=== PATIENT | female | born 1945 | race Caucasian/White ===

== ENCOUNTER → 2020-09-28 | Outpatient (CLI) | payer OTHER ==
[~2020-09-28] MED LIST: ASPIRIN 325MG325 MG PO; ASPIRIN EC325 MG PO; ASPIRIN325 MG PO; BUSPAR 10MG10 MG PO; CALCIUM 600 +1 EAC7 PO; CLEOCIN 150MG150 MG PO; ENOXAPARIN40 MG/0.4 SC; FLOVENT DISKU100 MCG INH; FOSAMAX70 MG PO; HYDROCHLOROTHIA50 MG PO; IBUPROFEN600 MG PO; KEFLEX500 MG PO; LEVOFLOXACIN250 MG PO; LEXAPRO10 MG PO; LORTAB 7.5-3251 EACH PO; MOBIC15 MG PO; NORCO 7.5-3251 EACH PO; OMEPRAZOLE40 MG PO; PERCOCET 5/325 T1 EA PO; ROXICODONE TAB 55 MG PO; SINGULAIR10 MG PO; TENORMIN25 MG PO; VENTOLIN HFA 66.7 GM INH; VITAMIN B-121000 MCG PO; ZESTRIL10 MG PO
== END ==
LOC: KOH-I 09:22
DX: S91.301D Unspecified open wound, right foot, subsequent encounter (principal); M86.8X7 Other osteomyelitis, ankle and foot; L98.9 Disorder of the skin and subcutaneous tissue, unspecified; X58.XXXA Exposure to other specified factors, initial encounter
CPT/HCPCS: 73718; 93926

== ENCOUNTER → 2020-10-05 | Outpatient (CLI) | payer OTHER | LOC: OPSV 12:00 | PROVIDERS: Podiatrist Foot & Ankle Surgery | PROC: 02HV33Z Insertion of Infusion Device into Superior Vena Cava, Percutaneous Approach (ICD-10-PCS; principal; 2020-10-05) | DX: M86.9 Osteomyelitis, unspecified (principal) | CPT/HCPCS: 80048 ==

== ENCOUNTER → 2020-10-06 | Outpatient (CLI) | payer OTHER ==
[~2020-10-06] VITALS: Ht 167.6 cm; Wt 81.6 kg
== END ==
LOC: OPSV 09:00
DX: M86.8X7 Other osteomyelitis, ankle and foot (principal)
CPT/HCPCS: 96365; 96366; J3370; J7070

== ENCOUNTER → 2020-11-24 | Outpatient (CLI) | payer OTHER ==
[2020-11-24 12:50] LABS: HEMOGLOBIN 10.2 gm/dl (12.3-15.3); RED BLOOD COUNT 3.22 M/UL (4.00-5.10); WHITE BLOOD COUNT 5.9 K/UL (4.5-11.0)
== END ==
LOC: OPSV2 12:00
PROVIDERS: Podiatrist Foot & Ankle Surgery
DX: Z01.812 Encounter for preprocedural laboratory examination (principal); M86.8X7 Other osteomyelitis, ankle and foot; Z20.822 Contact with and (suspected) exposure to COVID-19
CPT/HCPCS: 36415; 80048; 85027

== ENCOUNTER → 2020-11-25 | Day surgery (SDC) | payer OTHER ==
[~2020-11-25] VITALS: Ht 167.6 cm; Wt 84.4 kg
== END | disposition home or self-care (01) ==
LOC: OR 05:59
DX: T84.84XA Pain due to internal orthopedic prosthetic devices, implants and grafts, initial encounter (principal); M86.8X7 Other osteomyelitis, ankle and foot; L03.115 Cellulitis of right lower limb; I10 Essential (primary) hypertension; R53.83 Other fatigue; F41.9 Anxiety disorder, unspecified; D64.9 Anemia, unspecified; Z79.82 Long term (current) use of aspirin
CPT/HCPCS: 73630; 76000; C1713; J1580; J2001; J2405; J2704; J2795; J3010; J3370; J7120

== ENCOUNTER → 2021-03-11 | Outpatient (CLI) | payer OTHER | LOC: KOH-I 10:22 | DX: M79.672 Pain in left foot (principal); M19.072 Primary osteoarthritis, left ankle and foot; M20.42 Other hammer toe(s) (acquired), left foot | CPT/HCPCS: 73630 ==

== ENCOUNTER 2021-07-10 11:27 | Inpatient (IN) | payer OTHER ==
[~2021-07-10] VITALS: Ht 167.6 cm; Wt 86.2 kg
[2021-07-10 13:24] LABS: HEMOGLOBIN 11.3 gm/dl (12.3-15.3); RED BLOOD COUNT 3.51 M/UL (4.00-5.10)
[2021-07-10] MEDS ORDERED: MONTELUKAST SOD10 MG PO (22:08)
[2021-07-11 07:57] LABS: HEMOGLOBIN 11.4 gm/dl (12.3-15.3); RED BLOOD COUNT 3.66 M/UL (4.00-5.10); WHITE BLOOD COUNT 4.7 K/UL (4.5-11.0)
[2021-07-12 05:19] LABS: HEMOGLOBIN 12.1 gm/dl (12.3-15.3); RED BLOOD COUNT 3.71 M/UL (4.00-5.10)
[2021-07-12 05:21] LABS: WHITE BLOOD COUNT 6.1 K/UL (4.5-11.0)
--- NOTE | 2021-07-12 14:23 | NUR ---
PATIENT REQUESTING PAIN MEDICATION. NEW ORDER NOTED FROM DR. PANDYA.
[2021-07-14 04:40] LABS: RED BLOOD COUNT 3.66 M/UL (4.00-5.10); WHITE BLOOD COUNT 5.4 K/UL (4.5-11.0)
[2021-07-14] MEDS ORDERED: BACTRIM DS TAB1 EACH PO (09:23)
[2021-07-14] MEDS ORDERED: ASPIRIN EC81 MG PO (09:23)
== END 2021-07-14 12:52 | disposition home or self-care (01) | DRG 603 ==
LOC: ER1 11:27 → M/S 14:42 → CDU 14:42 → M/S 16:38
PROVIDERS: Internal Medicine; Physician Assistant; Physician Assistant Medical; ADMIT Internal Medicine
DX: L03.032 Cellulitis of left toe (principal); I73.9 Peripheral vascular disease, unspecified; I10 Essential (primary) hypertension; Z20.822 Contact with and (suspected) exposure to COVID-19; I48.91 Unspecified atrial fibrillation; K21.9 Gastro-esophageal reflux disease without esophagitis; F32.A Depression, unspecified; F41.9 Anxiety disorder, unspecified; M81.0 Age-related osteoporosis without current pathological fracture; Z79.01 Long term (current) use of anticoagulants; Z86.16 Personal history of COVID-19; Z79.2 Long term (current) use of antibiotics; Z79.82 Long term (current) use of aspirin; Z98.42 Cataract extraction status, left eye; Z98.41 Cataract extraction status, right eye; Z89.421 Acquired absence of other right toe(s); Z87.81 Personal history of (healed) traumatic fracture
CPT/HCPCS: 36415; 73630; 73718; 80048; 80053; 80202; 83605; 83735; 85025; 85027; 85652; 86140; 87040; 93926; 96374; 99284; J0696; J3370; J7030; J7070; U0002